=== PATIENT | male | born 1980 | race African-American/Black ===

== ENCOUNTER → 2019-10-09 | Outpatient (CLI) | payer OTHER ==
--- NOTE | 2019-10-09 08:56 | Diagnostic Imaging Report ---
EXAMINATION: CHEST 2 VIEWS INDICATION: Chest pain COMPARISON: None FINDINGS: LINES/TUBES:None LUNGS:The lungs are well-inflated. No focal consolidation or pulmonary edema. PLEURA:No pleural effusion or pneumothorax. MEDIASTINUM:The cardiomediastinal silhouette appears normal in size and shape. BONES/SOFT TISSUES:No acute osseous injury. ABDOMEN:No free air under the diaphragm. IMPRESSION: No focal pneumonia or pulmonary edema. Signed by: Armando Alva MD on 10/09/2019 8:53 AM
== END ==
LOC: RAD 07:49
PROVIDERS: ATTEND Internal Medicine
DX: R07.9 Chest pain, unspecified (principal)
CPT/HCPCS: 71046

== ENCOUNTER → 2019-11-21 | Outpatient (CLI) | payer OTHER ==
[~2019-11-21] MED LIST: IOPAMIDOL 370 MG/ML 200 ML INFUS..BTL INJ ONE; SODIUM CHLORIDE 0.9% 50ML 50 ML ONE
[2019-11-21 18:21] LABS: CREATININE, SERUM 1.59 mg/dL (0.72-1.25)
--- NOTE | 2019-11-21 19:35 | Diagnostic Imaging Report ---
EXAM: CT Chest WITH contrast 11/21/2019 6:50 PM INDICATION: Chest pain with positive d-dimer suspicious for pulmonary embolism. COMPARISON: Chest x-ray on 10/09/2019. TECHNIQUE: Chest was scanned utilizing a multidetector helical scanner from the lung apex through the level of the adrenal glands with administration of IV contrast. Coronal and sagittal reformations were obtained. Routine protocol was performed. IV CONTRAST: 100 mL of Omnipaque 300 COMPLICATIONS: None RADIATION DOSE: Total DLP: 590 mGy*cm Estimated effective dose: (DLP x 0.014 x size factor) mSv CTDIvol has been reviewed. It is below the limits set by the Radiation Protocol Committee (RPC). Dose modulation, iterative reconstruction, and/or weight based adjustment of the mA/kV was utilized to reduce the radiation dose to as low as reasonably achievable. FINDINGS: LINES/ TUBES: None. VASCULAR: No evidence of pulmonary embolism to the segmental levels. The pulmonary trunk has normal caliber measuring 2.4 cm. No evidence of right heart strain. The ascending and descending aorta have normal caliber measuring 3.3 cm and 2.7 cm, respectively. LUNGS AND AIRWAYS: The lungs are unremarkable. Airways are normal. Scattered punctate granulomas. PLEURA: The pleural spaces are clear. HEART AND MEDIASTINUM: The thyroid gland is normal. No mediastinal, hilar or axillary lymphadenopathy. The heart is normal in size. There is no pericardial effusion. UPPER ABDOMEN: Hepatic cyst in the right lobe (series 2 image 121). Additional smaller hypodense lesions throughout the liver are too small to characterize by CT and likely represent smaller cysts. Left renal cyst. The remainder of the imaged upper abdomen is unremarkable. BONES: The visualized bony thorax is within normal limits. SOFT TISSUES: Unremarkable. IMPRESSION: 1. No evidence of pulmonary embolism to the segmental level. 2. No acute intrathoracic abnormality identified. Signed by: Concepción Liao MD on 11/21/2019 7:32 PM
== END ==
LOC: CT 17:36
PROVIDERS: ATTEND Internal Medicine
DX: R79.1 Abnormal coagulation profile (principal)
CPT/HCPCS: 36415; 71260; 82565; 84520; Q9967